=== PATIENT | female | born 1995 | race Caucasian/White ===

== ENCOUNTER 2017-12-02 11:08 | Emergency (ER) | payer BC ==
[~2017-12-02] VITALS: Ht 177.8 cm; Wt 94.8 kg
[~2017-12-02 11:08] MED LIST: ALLEGRA-D 241 TABLET PO; CYMBALTA60 MG PO; GABAPENTIN600 MG PO; NORCO 5/3251 TABLET PO; PREDNISONE50 MG PO; SKELAXIN800 MG PO
[2017-12-02 13:01] LABS: HEMATOCRIT 42.1 % (36.0-46.0); HEMOGLOBIN 14.1 G/DL (11.9-15.5); MCH 30.4 PG (29.0-34.0); MCHC 33.5 G/DL (30.0-36.0); MCV 90.7 FL (83-99); PLATELET COUNT 193 K/uL (156-360); RBC DIS.WIDTH-SD 43.3 % (39-53); RED BLOOD COUNT 4.64 M/uL (3.80-5.20)
[2017-12-02 13:19] LABS: ALBUMIN 3.9 G/DL (3.2-4.8); CHLORIDE 110 MEQ/L (99-109); POTASSIUM 4.9 MEQ/L (3.7-5.4); SODIUM 140 MEQ/L (136-147); TOTAL BILIRUBIN 0.4 MG/DL (0.0-1.0)
[2017-12-02 13:24] LABS: ALKALINE PHOSPHATASE 53 IU/L (3-129); ALT (GPT) 7 IU/L (3-49); AST (GOT) 11 IU/L (2-34); CREATININE 0.8 MG/DL (0.6-1.3); GFR ESTIMATE (CALCULATED) > 59 mL/min/; GLUCOSE 99 mg/dL (70-99); LIPASE 17 U/L (1.0-51.0); TOTAL PROTEIN 6.3 G/DL (6.4-8.3); UREA NITROGEN (BUN) 12 mg/dL (9-23)
[2017-12-02 13:28] LABS: QUANTITATIVE HCG < 4.0 MIU/ML
[2017-12-02 13:52] LABS: APPEARANCE SL.HAZY ((CLEAR)); BILIRUBIN NEGATIVE; BLOOD NEGATIVE; COLOR YELLOW ((YELLOW)); GLUCOSE (STRIP) NEGATIVE; KETONES NEGATIVE; LEUKOCYTES SMALL; NITRITE NEGATIVE; PROTEIN (STRIP) NEGATIVE; SPECIFIC GRAVITY 1.026 (1.000-1.030)
[2017-12-02] MEDS ORDERED: NAPROSYN500 MG PO (13:52)
[2017-12-02 13:58] LABS: BACTERIA RARE /HPF; EPITHELIAL CELLS 1+ /HPF; MUCUS NONE SEEN /LPF; RED BLOOD CELLS 0-5 /HPF (0-5); UCUL ADDED? NO; WHITE BLOOD CELLS 0-5 /HPF (0-5)
[2017-12-02 14:22] VITALS: BP 136/95
== END 2017-12-02 14:23 | disposition home or self-care (01) ==
LOC: EME 11:08
PROVIDERS: Physician Assistant
DX: N83.202 Unspecified ovarian cyst, left side (principal); M54.5 Low back pain; G89.29 Other chronic pain; F17.200 Nicotine dependence, unspecified, uncomplicated
CPT/HCPCS: 76856; 80053; 81003; 83690; 84702; 85027; 99281; 99284